=== PATIENT | female | born 1985 | race Caucasian/White ===

== ENCOUNTER 2020-09-21 11:44 | Emergency (ER) | payer OTHER, SELFPAY ==
[2020-09-21 11:57] VITALS: BP 135/84; PULSE 111; RESP 18; TEMP 36.6; O2SAT 98
--- NOTE | 2020-09-21 12:33 | ED.EYEPROB ---
HPI - Eye Problem General Chief complaint: Eye Problems Stated complaint: irrated right eye Time Seen by Provider: 09/21/20 12:17 Source: patient and RN notes reviewed Mode of arrival: ambulatory Limitations: no limitations History of Present Illness HPI Narrative: Patient presents today complaining of right eye redness and irritation x2 days. She also reports some mild photophobia and watering. Denies vision changes, injury, or foreign body sensation. She does wear contacts, but has had them out soon after onset of symptoms. Denies recent illness or URI symptoms. She has tried no [id number] treatment prior to arrival. chief complaint: eye redness Related Data Allergies Allergy/AdvReac Type Severity Reaction Status Date / Time No Known Allergies Allergy Verified 09/21/20 12:02 Review of Systems Review of Systems: Narrative: CONSTITUTIONAL: Denies body aches, fever, chills, or sweats. EYES: Denies visual changes, or discharge. + Eye redness, watering, irritation, photophobia ENT: Denies rhinorrhea, congestion, sore throat, or otalgia. CARDIOVASCULAR: Denies chest pain, palpitations, or edema. RESPIRATORY: Denies cough or dyspnea. GASTROINTESTINAL: Denies abdominal pain, nausea, vomiting, or diarrhea. GENITOURINARY: Denies dysuria or hematuria. SKIN: Denies rash, itching, or wounds. MUSCULOSKELETAL: Denies back pain, joint pain, or myalgia. NEUROLOGIC: Denies headache, numbness, tingling, or weakness. PSYCH: Denies depression or anxiety. PMFSH Comments At time of signature, I have reviewed and agree with nursing past medical, surgical, social and family history unless otherwise noted. Please see nursing chart for further information. There is no relevant family history pertinent to the presenting complaint Exam Narrative: Exam Narrative: GENERAL: Well-appearing, well-nourished, and in no acute distress. HEAD: Normocephalic, atraumatic. EYES: EOMI. PERRL. Left eye normal. Lids and lashes normal on the left. Lashes normal on the right. Eyelids are very mildly swollen on the right. Right eye with swollen injected conjunctiva. No active drainage. ENT: Mucous membranes pink and moist. Nares clear. No rhinorrhea. NECK: Normal AROM. CHEST: No respiratory distress. EXTREMITIES: Normal range of motion. No edema. SKIN: Warm, dry, no rash. Capillary refill normal. Normal skin turgor. NEURO: No focal deficits. Alert and oriented x3. Gait steady. PSYCH: Normal affect. No signs of depression or anxiety. Course Vital Signs Vital signs: Vital Signs Temperature 98 F 09/21/20 11:57 Pulse Rate 111 H 09/21/20 11:57 Respiratory Rate 18 09/21/20 11:57 Blood Pressure 135/84 09/21/20 11:57 Pulse Oximetry 98 09/21/20 11:57 Temperature 98 F 09/21/20 11:57 Pulse Rate 111 H 09/21/20 11:57 Respiratory Rate 18 09/21/20 11:57 Blood Pressure 135/84 09/21/20 11:57 Pulse Oximetry 98 09/21/20 11:57 Reviewed. Pt has been instructed to follow up with her PCP regarding her elevated blood pressure today. Procedures Other Procedure Procedure 1: Other Procedure: Right eye was anesthetized with 1 drop of tetracaine and anesthesia was achieved. The eye was flushed with eye wash. Lid was inverted and examined. Moistened Qtip was used to sweep underneath the upper eyelid with 0 foreign bodies resulting. Cornea was dyed with fluorescein and 0 abrasions or ulcerations were noted. Pt tolerated procedure well. MDM - Eye Problem Differential Diagnosis Differential diagnosis: Likely corneal abrasion, conjunctivitis and periorbital cellulitis Critical Care Time Critical Care Time Critical Care Time: No Discharge Plan Discharge Clinical Impression: Conjunctivitis Qualifiers: Conjunctivitis type: acute Acute conjunctivitis type: unspecified Laterality: right Qualified Code(s): H10.31 - Unspecified acute conjunctivitis, right eye Patient Disposition: Home, Self-Care Condition:
== END 2020-09-21 12:38 | disposition home or self-care (01) ==
PROVIDERS: Emergency Provider Nurse Practitioner
DX: H10.31 Unspecified acute conjunctivitis, right eye (principal)
CPT/HCPCS: 99213; A9270; G0463

== ENCOUNTER 2020-12-22 18:41 | Emergency (ER) | payer OTHER, SELFPAY ==
[2020-12-22 18:50] VITALS: BP 124/79; PULSE 102; RESP 20; TEMP 37.3; O2SAT 100
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
== END 2020-12-22 19:45 | disposition home or self-care (01) ==
PROVIDERS: Emergency Provider Nurse Practitioner Family
DX: S71.001A Unspecified open wound, right hip, initial encounter (principal); W34.00XA Accidental discharge from unspecified firearms or gun, initial encounter
CPT/HCPCS: 99213; G0463

== ENCOUNTER 2023-08-20 19:06 | Emergency (ER) | payer OTHER, SELFPAY ==
[2023-08-20 19:14] VITALS: BP 117/73; PULSE 88; RESP 20; TEMP 37; O2SAT 98
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
== END 2023-08-20 20:10 | disposition home or self-care (01) ==
PROVIDERS: Emergency Provider Registered Nurse; PCP Nurse Practitioner Family
DX: J10.1 Influenza due to other identified influenza virus with other respiratory manifestations (principal); Z20.822 Contact with and (suspected) exposure to COVID-19; F17.210 Nicotine dependence, cigarettes, uncomplicated
CPT/HCPCS: 87426; 87804; 99213; G0463